=== PATIENT | male | born 1945 | race Caucasian/White ===

== ENCOUNTER 2023-02-13 02:40 | Outpatient (CLI) | payer OTHER, SELFPAY ==
--- NOTE | 2023-02-13 | DI.CT_ITS ---
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 FINDINGS: CHEST: Tracheobronchial tree: Patent where visualized. Pulmonary parenchyma: There are multiple pleural based and masses in the lungs. The largest is in th e left upper lobe posteriorly and measures 2.8 x 2.2 cm. There are bilateral pleural effusions left greater than right. There is a 1 cm left upper lobe there is a 9 mm nodule in the left upper lobe. There are subjacent infiltrate seen in the lower lobes bilaterally which may represent atelectasis or pneumonia. Pulmonary nodule. Visualized thyroid gland: Unremarkable. Mediastinum and Zulema: No dominant adenopathy or fluid collection. There are postsurgical changes of a gastric pull-up. Pleura: No pneumothorax. Heart: The heart is not dilated. No coronary artery calcifications are seen. No pericardial effusion. There are few nodules adjacent to the heart. The largest measures 2.1 x 1.4 cm. Pulmonary arteries: No pulmonary emboli are identified. Aorta: Thoracic aorta non-dilated. No evidence of dissection. Atherosclerosis is present. Lymph nodes: Within normal limits. Soft tissues: Mild gynecomastia. Bones:Within normal limits for the patient's age. Old healed left rib fracture. ABDOMEN: Liver: Normal density. There is a hypodensity in the right lobe of the liver consistent with a cyst. Portal, Superior Mesenteric, and Splenic Veins: Unremarkable. Gallbladder and Biliary Tract: No radiodense calculus or dilation. Pancreas: Normal density, no abnormal calcifications or inflammatory process. Spleen: Normal. Adrenals: No masses seen. Kidneys: The patient has a horseshoe kidney. Left renal calculi are identified. No evidence of obst ructive uropathy. No masses seen. Abdominal Aorta: Abdominal portion non-dilated. Atherosclerosis. Bowel: There is diverticulosis of the colon but no evidence of acute diverticulitis. No evidence of bowel obstruction or bowel wall thickening. No evidence of appendicitis. Peritoneal Cavity: No ascites, collection or mesenteric inflammatory response. No free air. Lymph Nodes: Within normal limits. Bones: Within normal limits for the patient's age. There is a 2.5 cm well-circumscribed lytic lesion in the right femoral neck with sclerotic borders. No bony destruction or associated soft tissue mas s is present. No aggressive osseous lesions are identified. Soft Tissues: There is a small fat containing umbilical hernia. PELVIS: Bladder: There is diffuse thickening of the wall of the urinary bladder. Reproductive Organs: Unremarkable as visualized. Lymph Nodes: Within normal limits. Bones: No aggressive osseous lesions are present. IMPRESSION: 1. Findings of thoracic metastatic disease with multiple on pleural based an intraparenchymal masses present. 2. Status post esophagectomy and gastric pull-up. 3. Bilateral pleural effusions, left greater than right. Subjacent infiltrates are seen, left greate r than right which may represent atelectasis or pneumonia. 4. No evidence of abdominal or pelvic metastatic disease. 5. Well-circumscribed 2.5 cm lytic lesion in the right femoral neck without evidence of bony destruct ion or soft tissue mass. Comparison should be made with prior examinations to assess stability of th is lesion. Follow-up as clinically appropriate. RADIATION DOSE DELIVERED: Total DLP DATA REPOSITORY: All CT scans at this facility are submitted to the National Radiology Data Registry (NRDR) Dose Index Registry (DIR) with the [employer] (ACR). RADIATION OPTIMIZATION: All CT scans at this facility use at least one of these dose optimization te chniques: automated exposure control; mA and/or kV adjustment per patient size (includes targeted exa ms where dose is matched to clinical indication); or iterative reconstruction.
[2023-02-13] MEDS: Barium Sulfate 2% W/V-Berry Smoothie 450 ML BTL PO (13:10)
[2023-02-13 13:37] LABS: Abs Immature Grans 0.01 10^3/uL (0.0-0.06); Absolute Basophil Count 0.04 10^3/uL (0.0-0.2); Absolute Eosinophil Count 0.16 10^3/uL (0.0-0.7); Absolute Lymphocyte Count 1.95 10^3/uL (1.2-3.4); Absolute Monocyte Count 0.66 10^3/uL (0.1-0.8); Absolute Neutrophil Count 3.04 10^3/uL (1.2-6.7); Basophils % 0.7; Eosinophils % 2.7; HCT 47.8 % (40.0-50.0); HGB 15.6 g/dL (13.5-17.5); Immature Grans % 0.2; Lymphocytes % 33.3; MCH 29.3 pg (27.0-33.0); MCHC 32.6 % (32.0-36.0); MCV 90 fL (80-95); Monocytes % 11.3; Neutrophils % 51.8; Platelet Count 330 10^3/uL (130-400); RBC 5.32 10^6/uL (4.36-5.78); RDW 14.1 % (11.8-14.1); RDW-SD 46.7 fL; WBC 5.86 10^3/uL (4.4-10.8)
[2023-02-13 14:05] LABS: ALT 15 U/L (16-63); AST 14 U/L (15-37); Albumin 3.3 g/dL (3.4-5.0); Alkaline Phosphatase 97 U/L (46-116); Anion Gap 4.6 mmol/L (3-11); BUN 11 mg/dL (7-18); Bilirubin, Total 0.6 mg/dL (0.2-1.0); CO2 30.4 mmol/L (21.0-32.0); Calcium 9.5 mg/dL (8.5-10.1); Chloride 105 mmol/L (98-107); Estimated GFR 77.04 (mL/min/1.73m2); Glucose 114 mg/dL (74-106); Potassium 4.4 mmol/L (3.5-5.1); Sodium 140 mmol/L (136-145); Total Protein 7.6 g/dL (6.4-8.2)
[2023-02-13] MEDS: Omnipaque 350 MG/ML 100 ML BTL IJ (15:01)
[2023-02-13] MEDS: Normal Saline - Diluent 50 ML VIAL IJ (15:02)
== END 2023-02-13 03:00 ==
PROVIDERS: PCP Internal Medicine; Visit Provider Internal Medicine Hematology & Oncology
DX: C15.9 Malignant neoplasm of esophagus, unspecified (principal)
CPT/HCPCS: 74177; 80053; 71260; 82378; 85025; J3490

== ENCOUNTER 2023-03-05 01:43 | Outpatient (CLI) | payer OTHER, SELFPAY ==
[2023-03-05 08:36] LABS: Abs Immature Grans 0.02 10^3/uL (0.0-0.06); Absolute Basophil Count 0.04 10^3/uL (0.0-0.2); Absolute Eosinophil Count 0.19 10^3/uL (0.0-0.7); Absolute Monocyte Count 0.68 10^3/uL (0.1-0.8); Absolute Neutrophil Count 3.13 10^3/uL (1.2-6.7); Basophils % 0.7; Eosinophils % 3.2; HCT 46.5 % (40.0-50.0); HGB 15.7 g/dL (13.5-17.5); Immature Grans % 0.3; Lymphocytes % 30.7; MCH 30.5 pg (27.0-33.0); MCHC 33.8 % (32.0-36.0); MCV 90 fL (80-95); Monocytes % 11.6; Neutrophils % 53.5; Platelet Count 276 10^3/uL (130-400); RBC 5.15 10^6/uL (4.36-5.78); RDW 15.7 % (11.8-14.1); RDW-SD 46.3 fL; WBC 5.86 10^3/uL (4.4-10.8)
[2023-03-05 08:50] LABS: ALT 11 U/L (16-63); AST 12 U/L (15-37); Albumin 3.5 g/dL (3.4-5.0); Alkaline Phosphatase 104 U/L (46-116); Anion Gap 8.4 mmol/L (3-11); BUN 13 mg/dL (7-18); Bilirubin, Total 0.9 mg/dL (0.2-1.0); CO2 28.6 mmol/L (21.0-32.0); CREATININE 1.2 mg/dL (0.70-1.30); Calcium 9.7 mg/dL (8.5-10.1); Chloride 103 mmol/L (98-107); Glucose 82 mg/dL (74-106); Sodium 140 mmol/L (136-145); Total Protein 7.5 g/dL (6.4-8.2)
[2023-03-05 19:09] LABS: CEA 5.9 ng/mL (See Note)
== END 2023-03-05 01:44 | disposition home or self-care (01) ==
PROVIDERS: PCP Internal Medicine; Visit Provider Internal Medicine Hematology & Oncology
DX: C15.9 Malignant neoplasm of esophagus, unspecified (principal)
CPT/HCPCS: 36415; 80053; 82378; 85025

== ENCOUNTER 2023-03-26 03:07 | Outpatient (CLI) | payer OTHER, SELFPAY ==
[2023-03-26 09:02] LABS: Abs Immature Grans 0.04 10^3/uL (0.0-0.06); Absolute Basophil Count 0.03 10^3/uL (0.0-0.2); Absolute Eosinophil Count 0.16 10^3/uL (0.0-0.7); Absolute Lymphocyte Count 2.12 10^3/uL (1.2-3.4); Absolute Monocyte Count 0.85 10^3/uL (0.1-0.8); Absolute Neutrophil Count 3.19 10^3/uL (1.2-6.7); Basophils % 0.5; Eosinophils % 2.5; HCT 43.5 % (40.0-50.0); HGB 14.6 g/dL (13.5-17.5); Immature Grans % 0.6; Lymphocytes % 33.2; MCH 30.9 pg (27.0-33.0); MCHC 33.6 % (32.0-36.0); MCV 92 fL (80-95); MPV 8.7 fL (8.0-11.0); Monocytes % 13.3; Neutrophils % 49.9; Platelet Count 255 10^3/uL (130-400); RBC 4.72 10^6/uL (4.36-5.78); RDW 18.4 % (11.8-14.1); WBC 6.39 10^3/uL (4.4-10.8)
[2023-03-26 09:31] LABS: ALT 11 U/L (16-63); AST 13 U/L (15-37); Albumin 3.3 g/dL (3.4-5.0); Alkaline Phosphatase 116 U/L (46-116); Anion Gap 5.5 mmol/L (3-11); BUN 14 mg/dL (7-18); Bilirubin, Total 0.6 mg/dL (0.2-1.0); CO2 29.5 mmol/L (21.0-32.0); CREATININE 1.3 mg/dL (0.70-1.30); Calcium 9.1 mg/dL (8.5-10.1); Chloride 102 mmol/L (98-107); Estimated GFR 56.23 (mL/min/1.73m2); Glucose 90 mg/dL (74-106); Potassium 4.5 mmol/L (3.5-5.1); Sodium 137 mmol/L (136-145); Total Protein 7.1 g/dL (6.4-8.2)
[2023-03-26 21:42] LABS: CEA 4.3 ng/mL (See Note)
== END 2023-03-26 03:08 | disposition home or self-care (01) ==
LOC: LBO 03:07
PROVIDERS: PCP Internal Medicine; Visit Provider Internal Medicine Hematology & Oncology
DX: C15.9 Malignant neoplasm of esophagus, unspecified (principal)
CPT/HCPCS: 36415; 80053; 82378; 85025

== ENCOUNTER 2023-04-15 02:41 | Outpatient (CLI) | payer OTHER, SELFPAY ==
[2023-04-15 08:11] LABS: Abs Immature Grans 0.03 10^3/uL (0.0-0.06); Absolute Basophil Count 0.05 10^3/uL (0.0-0.2); Absolute Eosinophil Count 0.18 10^3/uL (0.0-0.7); Absolute Lymphocyte Count 2.24 10^3/uL (1.2-3.4); Absolute Monocyte Count 0.87 10^3/uL (0.1-0.8); Absolute Neutrophil Count 3.97 10^3/uL (1.2-6.7); Basophils % 0.7; Eosinophils % 2.5; HCT 45.1 % (40.0-50.0); Immature Grans % 0.4; Lymphocytes % 30.5; MCH 31.3 pg (27.0-33.0); MCHC 33.3 % (32.0-36.0); MCV 94 fL (80-95); MPV 8.4 fL (8.0-11.0); Monocytes % 11.9; Platelet Count 283 10^3/uL (130-400); RBC 4.79 10^6/uL (4.36-5.78); RDW 19.4 % (11.8-14.1); RDW-SD 66.5 fL; WBC 7.34 10^3/uL (4.4-10.8)
[2023-04-15 08:28] LABS: ALT 10 U/L (16-63); AST 13 U/L (15-37); Albumin 3.3 g/dL (3.4-5.0); Alkaline Phosphatase 122 U/L (46-116); Anion Gap 4.7 mmol/L (3-11); BUN 13 mg/dL (7-18); Bilirubin, Total 0.7 mg/dL (0.2-1.0); CO2 31.3 mmol/L (21.0-32.0); CREATININE 1.3 mg/dL (0.70-1.30); Calcium 9.1 mg/dL (8.5-10.1); Chloride 102 mmol/L (98-107); Estimated GFR 56.23 (mL/min/1.73m2); Glucose 73 mg/dL (74-106); Potassium 3.7 mmol/L (3.5-5.1); Sodium 138 mmol/L (136-145); Total Protein 7.3 g/dL (6.4-8.2)
[2023-04-15 18:22] LABS: CEA 3.8 ng/mL (See Note)
== END 2023-04-15 02:42 | disposition home or self-care (01) ==
LOC: LBO 02:42
PROVIDERS: PCP Internal Medicine; Visit Provider Internal Medicine Hematology & Oncology
DX: C15.9 Malignant neoplasm of esophagus, unspecified (principal)
CPT/HCPCS: 36415; 80053; 82378; 85025

== ENCOUNTER 2023-05-16 01:45 | Outpatient (CLI) | payer OTHER, SELFPAY ==
[2023-05-16 08:40] LABS: Abs Immature Grans 0.03 10^3/uL (0.0-0.06); Absolute Basophil Count 0.04 10^3/uL (0.0-0.2); Absolute Eosinophil Count 0.19 10^3/uL (0.0-0.7); Absolute Lymphocyte Count 1.66 10^3/uL (1.2-3.4); Absolute Monocyte Count 0.87 10^3/uL (0.1-0.8); Basophils % 0.6; Eosinophils % 3.1; HCT 42.4 % (40.0-50.0); HGB 14.3 g/dL (13.5-17.5); Immature Grans % 0.5; Lymphocytes % 26.8; MCH 32.9 pg (27.0-33.0); MCHC 33.7 % (32.0-36.0); MCV 98 fL (80-95); MPV 8.4 fL (8.0-11.0); Monocytes % 14.1; Neutrophils % 54.9; Platelet Count 258 10^3/uL (130-400); RBC 4.34 10^6/uL (4.36-5.78); RDW 20.6 % (11.8-14.1); RDW-SD 73.6 fL; WBC 6.19 10^3/uL (4.4-10.8)
[2023-05-16 08:56] LABS: ALT 11 U/L (16-63); AST 16 U/L (15-37); Albumin 3.2 g/dL (3.4-5.0); Alkaline Phosphatase 112 U/L (46-116); Anion Gap 4.9 mmol/L (3-11); BUN 13 mg/dL (7-18); Bilirubin, Total 0.8 mg/dL (0.2-1.0); CO2 30.1 mmol/L (21.0-32.0); CREATININE 1.3 mg/dL (0.70-1.30); Calcium 9.4 mg/dL (8.5-10.1); Chloride 104 mmol/L (98-107); Estimated GFR 56.23 (mL/min/1.73m2); Glucose 97 mg/dL (74-106); Potassium 4.6 mmol/L (3.5-5.1); Sodium 139 mmol/L (136-145); Total Protein 6.8 g/dL (6.4-8.2)
[2023-05-16 20:35] LABS: CEA 4.4 ng/mL (See Note)
== END 2023-05-16 01:46 | disposition home or self-care (01) ==
LOC: LBO 01:45
PROVIDERS: PCP Internal Medicine; Visit Provider Internal Medicine Hematology & Oncology
DX: C15.9 Malignant neoplasm of esophagus, unspecified (principal)
CPT/HCPCS: 36415; 80053; 82378; 85025

== ENCOUNTER 2023-05-30 12:15 | Outpatient (CLI) | payer OTHER, SELFPAY ==
[2023-05-30 08:42] LABS: Abs Immature Grans 0.02 10^3/uL (0.0-0.06); Absolute Basophil Count 0.04 10^3/uL (0.0-0.2); Absolute Eosinophil Count 0.12 10^3/uL (0.0-0.7); Absolute Lymphocyte Count 1.69 10^3/uL (1.2-3.4); Absolute Monocyte Count 0.85 10^3/uL (0.1-0.8); Absolute Neutrophil Count 3.37 10^3/uL (1.2-6.7); Basophils % 0.7; HGB 14.6 g/dL (13.5-17.5); Immature Grans % 0.3; Lymphocytes % 27.8; MCH 33.3 pg (27.0-33.0); MCV 98 fL (80-95); MPV 8.8 fL (8.0-11.0); Neutrophils % 55.2; Platelet Count 245 10^3/uL (130-400); RBC 4.39 10^6/uL (4.36-5.78); RDW 18.7 % (11.8-14.1); RDW-SD 67.6 fL; WBC 6.09 10^3/uL (4.4-10.8)
[2023-05-30 09:00] LABS: ALT 12 U/L (16-63); AST 15 U/L (15-37); Albumin 3.2 g/dL (3.4-5.0); Alkaline Phosphatase 120 U/L (46-116); Anion Gap 3.2 mmol/L (3-11); BUN 12 mg/dL (7-18); Bilirubin, Total 0.9 mg/dL (0.2-1.0); CO2 31.8 mmol/L (21.0-32.0); CREATININE 1.1 mg/dL (0.70-1.30); Calcium 9.1 mg/dL (8.5-10.1); Chloride 103 mmol/L (98-107); Estimated GFR 68.71 (mL/min/1.73m2); Glucose 101 mg/dL (74-106); Potassium 4.1 mmol/L (3.5-5.1); Sodium 138 mmol/L (136-145)
[2023-05-30 19:38] LABS: CEA 4.9 ng/mL (See Note)
== END 2023-05-30 12:16 | disposition home or self-care (01) ==
LOC: LBO 12:15
PROVIDERS: PCP Internal Medicine; Visit Provider Internal Medicine Hematology & Oncology
DX: C15.9 Malignant neoplasm of esophagus, unspecified (principal)
CPT/HCPCS: 36415; 80053; 82378; 85025

== ENCOUNTER 2023-06-27 16:37 | Outpatient (CLI) | payer OTHER, SELFPAY ==
[2023-06-27 13:34] LABS: Abs Immature Grans 0.02 10^3/uL (0.0-0.06); Absolute Basophil Count 0.04 10^3/uL (0.0-0.2); Absolute Eosinophil Count 0.28 10^3/uL (0.0-0.7); Absolute Lymphocyte Count 1.87 10^3/uL (1.2-3.4); Absolute Neutrophil Count 3.73 10^3/uL (1.2-6.7); Basophils % 0.6; Eosinophils % 4.1; HCT 42.7 % (40.0-50.0); HGB 14.4 g/dL (13.5-17.5); Immature Grans % 0.3; Lymphocytes % 27.3; MCHC 33.7 % (32.0-36.0); MCV 101 fL (80-95); MPV 8.5 fL (8.0-11.0); Monocytes % 13.2; Neutrophils % 54.5; Platelet Count 334 10^3/uL (130-400); RBC 4.23 10^6/uL (4.36-5.78); RDW 17.2 % (11.8-14.1); RDW-SD 65.1 fL; WBC 6.84 10^3/uL (4.4-10.8)
[2023-06-27 13:51] LABS: ALT 10 U/L (16-63); AST 16 U/L (15-37); Albumin 3.1 g/dL (3.4-5.0); Alkaline Phosphatase 124 U/L (46-116); Anion Gap 6.7 mmol/L (3-11); BUN 17 mg/dL (7-18); Bilirubin, Total 0.7 mg/dL (0.2-1.0); CO2 28.3 mmol/L (21.0-32.0); CREATININE 1.2 mg/dL (0.70-1.30); Calcium 9.2 mg/dL (8.5-10.1); Chloride 106 mmol/L (98-107); Glucose 118 mg/dL (74-106); Potassium 4.1 mmol/L (3.5-5.1); Sodium 141 mmol/L (136-145); Total Protein 7.2 g/dL (6.4-8.2)
== END 2023-06-27 16:38 | disposition home or self-care (01) ==
LOC: LBO 16:40
PROVIDERS: PCP Internal Medicine; Visit Provider Internal Medicine Hematology & Oncology
DX: C15.9 Malignant neoplasm of esophagus, unspecified (principal)
CPT/HCPCS: 36415; 80053; 85025

== ENCOUNTER 2023-07-25 02:05 | Outpatient (CLI) | payer OTHER, SELFPAY ==
[2023-07-25 12:42] LABS: Abs Immature Grans 0.02 10^3/uL (0.0-0.06); Absolute Basophil Count 0.04 10^3/uL (0.0-0.2); Absolute Eosinophil Count 0.22 10^3/uL (0.0-0.7); Absolute Lymphocyte Count 1.66 10^3/uL (1.2-3.4); Absolute Monocyte Count 0.64 10^3/uL (0.1-0.8); Absolute Neutrophil Count 3.09 10^3/uL (1.2-6.7); Basophils % 0.7; Eosinophils % 3.9; HCT 42.2 % (40.0-50.0); Immature Grans % 0.4; Lymphocytes % 29.3; MCH 35.1 pg (27.0-33.0); MCHC 33.2 % (32.0-36.0); MCV 106 fL (80-95); MPV 8.6 fL (8.0-11.0); Monocytes % 11.3; Neutrophils % 54.4; Platelet Count 247 10^3/uL (130-400); RBC 3.99 10^6/uL (4.36-5.78); RDW 16.9 % (11.8-14.1); RDW-SD 66.5 fL; WBC 5.67 10^3/uL (4.4-10.8)
[2023-07-25 12:58] LABS: ALT 14 U/L (16-63); AST 19 U/L (15-37); Albumin 3.1 g/dL (3.4-5.0); Alkaline Phosphatase 128 U/L (46-116); Anion Gap 7.9 mmol/L (3-11); BUN 13 mg/dL (7-18); Bilirubin, Total 0.7 mg/dL (0.2-1.0); CO2 28.1 mmol/L (21.0-32.0); CREATININE 1.1 mg/dL (0.70-1.30); Calcium 9.1 mg/dL (8.5-10.1); Chloride 108 mmol/L (98-107); Estimated GFR 68.71 (mL/min/1.73m2); Glucose 66 mg/dL (74-106); Potassium 4.1 mmol/L (3.5-5.1); Sodium 144 mmol/L (136-145); Total Protein 6.7 g/dL (6.4-8.2)
[2023-07-25 21:49] LABS: CEA 6.3 ng/mL (See Note)
== END 2023-07-25 02:06 | disposition home or self-care (01) ==
LOC: LBO 02:05
PROVIDERS: PCP Internal Medicine; Visit Provider Internal Medicine Hematology & Oncology
DX: C15.9 Malignant neoplasm of esophagus, unspecified (principal)
CPT/HCPCS: 36415; 80053; 82378; 85025

== ENCOUNTER 2023-08-14 08:46 | Outpatient (CLI) | payer OTHER, SELFPAY ==
[2023-08-14 08:24] LABS: Abs Immature Grans 0.02 10^3/uL (0.0-0.06); Absolute Basophil Count 0.02 10^3/uL (0.0-0.2); Absolute Eosinophil Count 0.13 10^3/uL (0.0-0.7); Absolute Lymphocyte Count 1.56 10^3/uL (1.2-3.4); Absolute Monocyte Count 0.64 10^3/uL (0.1-0.8); Absolute Neutrophil Count 3.43 10^3/uL (1.2-6.7); Basophils % 0.3; Eosinophils % 2.2; HCT 44.8 % (40.0-50.0); HGB 14.8 g/dL (13.5-17.5); Immature Grans % 0.3; Lymphocytes % 26.9; MCH 34.6 pg (27.0-33.0); MCV 105 fL (80-95); MPV 8.7 fL (8.0-11.0); Neutrophils % 59.3; Platelet Count 294 10^3/uL (130-400); RBC 4.28 10^6/uL (4.36-5.78); RDW 16.1 % (11.8-14.1); RDW-SD 63.3 fL
[2023-08-14 08:38] LABS: ALT 12 U/L (16-63); AST 17 U/L (15-37); Albumin 3.4 g/dL (3.4-5.0); Alkaline Phosphatase 139 U/L (46-116); BUN 17 mg/dL (7-18); Bilirubin, Total 1.1 mg/dL (0.2-1.0); CREATININE 1.1 mg/dL (0.70-1.30); Calcium 9.6 mg/dL (8.5-10.1); Chloride 105 mmol/L (98-107); Estimated GFR 68.71 (mL/min/1.73m2); Glucose 89 mg/dL (74-106); Potassium 3.9 mmol/L (3.5-5.1); Sodium 143 mmol/L (136-145); Total Protein 7.2 g/dL (6.4-8.2)
[2023-08-14 19:12] LABS: CEA 6.7 ng/mL (See Note)
== END 2023-08-14 08:47 | disposition home or self-care (01) ==
LOC: LBO 08:49
PROVIDERS: PCP Internal Medicine; Visit Provider Internal Medicine Hematology & Oncology
DX: C15.9 Malignant neoplasm of esophagus, unspecified (principal)
CPT/HCPCS: 36415; 80053; 82378; 85025

== ENCOUNTER → 2023-09-02 05:19 | Outpatient (CLI) | payer OTHER, SELFPAY ==
--- NOTE | 2023-09-02 | DI.CT_ITS ---
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 ESOPHAGEAL CA C15.9 ASSESS TREATMENT TECHNIQUE: Imaging Protocol: Axial computed tomography images with coronal and sagittal reformatted images were created and reviewed CONTRAST MATERIAL: Intravenous: Omnipaque 350 contrast volume:100 mL Oral: Yes COMPARISON: CT CT ABD PELVIS WITH CONTRAST from 10/31/[address] THORAX W/CONT from 10/31/2022 CT,PT PET CT STANDARD SCAN SKULL BASE DEVIKA THIGH from 11/05/[address] THORAX W/O CONT from 12/10/[address] CHEST/ABD/PEL W from 02/13/[address] CHEST/ABD/PEL W from 04/08/[address] CHEST/ABD/PEL W from 06/20/2023 FINDINGS: CHEST: Tracheobronchial tree: Patent where visualized. Pulmonary parenchyma: There has been interval increase in size of the pulmonary metastases since 06/20. For example, the nodule seen in the posterior aspect of the right lower lobe now measures 1.2 x 1.7 cm (series 5, image 322, compared to 1.0 x 1.3 cm on the prior examination. The nodule seen m ore inferiorly and posteriorly now measures 1.1 x 0.8 cm (series 5, image 416) compared to 0.5 x 0.3 cm. The metastasis in the medial right lung base measures 1.5 x 2.7 cm (series 5, image 480 compared to 1.0 x 1.8 cm. There are persistent bilateral pleural effusions which each have grown slightly la rger compared to the prior examination. Visualized thyroid gland: Unremarkable. Mediastinum and Zulema: Mediastinal and hilar adenopathy is present. They have increased in size. Mos t notably there is a 1.5 cm lymph node in the mediastinum (series 5, image 216). Previously this mirtha sured 7 mm. Status post esophagectomy with a gastric pull-up. There has been interval increase in s ize of the metastasis adjacent to the left heart which now measures 2.7 x 2.7 cm (series 5, image 550 ) compared to 1.8 x 2 cm. Pleura: Pleural based metastases have also increased in size compared to the prior examinations. Heart: The heart is not dilated. Mild coronary artery calcification. No pericardial effusion. Pulmonary arteries: No pulmonary emboli are identified. Aorta: Thoracic aorta non-dilated. No evidence of dissection. Atherosclerotic calcification is prese nt. Lymph nodes: Please see the above discussion under mediastinum and zulema. Soft tissues: Unremarkable. Bones:Age-appropriate degenerative changes are seen in the spine. ABDOMEN: Liver: Normal density. Stable hepatic cyst. No suspicious hepatic masses are present. Portal, Superior Mesenteric, and Splenic Veins: Unremarkable. Gallbladder and Biliary Tract: Cholelithiasis. No biliary ductal dilatation. Pancreas: Pancreatic atrophy. No evidence of a pancreatic mass or peripancreatic fluid collection. Spleen: Normal. Adrenals: No masses seen. Kidneys: There is a horseshoe kidney. Nonobstructive left nephrolithiasis. No masses seen. Abdominal Aorta: Abdominal portion non-dilated. Atherosclerotic calcification is present. Bowel: Colonic diverticulosis without evidence of diverticulitis. The patient has had a prior esopha gectomy and gastric pull-up. There is no evidence of bowel wall thickening or obstruction. No evide nce of appendicitis. Peritoneal Cavity: No ascites, collection or mesenteric inflammatory response. No free air. Lymph Nodes: Within normal limits. Bones: Within normal limits for the patient's age. There is now fracture involving the posterior lef t aspect of the T12 vertebral body and the left pedicle. There is soft tissue associated with this s uggesting a pathologic fracture. There is resultant spinal canal narrowing down to the 8 mm. There is left neural foraminal stenosis also present. Soft Tissues: Unremarkable. PELVIS: Bladder: There is diffuse mild thickening of the wall of the urinary bladder. Reproductive Organs: Unremarkable as visualized. Lymph Nodes: Within normal limits. Bones: Within normal limits. IMPRESSION: 1. Findings most suggestive of pathologic fracture involving the T12 vertebral body and left pedicle resulting in central spinal canal and left neural foraminal stenosis. This is new compared to the pr ior examination. 2. Persistent mild thickening of the wall of the urinary bladder. Differential considerations includ e underdistention, cystitis or chronic bladder outlet obstruction. 3. Interval progression of metastatic disease in the chest with increase in size of the pulmonary met astases, thoracic adenopathy and pleural effusions. RADIATION DOSE DELIVERED: 1,654.17mGy.cm Total DLP DATA REPOSITORY: All CT scans at this facility are submitted to the National Radiology Data Registry (NRDR) Dose Index Registry (DIR) with the [employer] (ACR). RADIATION OPTIMIZATION: All CT scans at this facility use at least one of these dose optimization te chniques: automated exposure control; mA and/or kV adjustment per patient size (includes targeted exa ms where dose is matched to clinical indication); or iterative reconstruction.
[2023-09-02] MEDS: Barium Sulfate 2% W/V-Berry Smoothie 450 ML BTL PO (09:02)
[2023-09-02] MEDS: Barium Sulfate 2% W/V-Creamy Vanilla Smoothie 450 ML BTL PO (09:02)
[2023-09-02] MEDS: Normal Saline - Diluent 50 ML VIAL IJ (10:55)
[2023-09-02] MEDS: Normal Saline Flush 10 ML SYR IVP (10:56)
[2023-09-02] MEDS: Omnipaque 350 MG/ML 500 ML BTL-Imaging package 100 ML IJ (10:57)
== END ==
PROVIDERS: PCP Internal Medicine; Visit Provider Internal Medicine Hematology & Oncology
DX: C78.2 Secondary malignant neoplasm of pleura (principal); C15.9 Malignant neoplasm of esophagus, unspecified; M51.34 Other intervertebral disc degeneration, thoracic region
CPT/HCPCS: 74177; 71260

== ENCOUNTER 2023-09-05 13:31 | Outpatient (CLI) | payer OTHER, SELFPAY ==
[2023-09-05 13:41] LABS: Abs Immature Grans 0.02 10^3/uL (0.0-0.06); Absolute Basophil Count 0.03 10^3/uL (0.0-0.2); Absolute Eosinophil Count 0.11 10^3/uL (0.0-0.7); Absolute Lymphocyte Count 1.61 10^3/uL (1.2-3.4); Absolute Monocyte Count 0.77 10^3/uL (0.1-0.8); Absolute Neutrophil Count 5.24 10^3/uL (1.2-6.7); Basophils % 0.4 %; Eosinophils % 1.4 %; HCT 42.8 % (40.0-50.0); HGB 14.2 g/dL (13.5-17.5); Immature Grans % 0.3 %; Lymphocytes % 20.7 %; MCH 34.9 pg (27.0-33.0); MCHC 33.2 % (32.0-36.0); MCV 105 fL (80-95); MPV 8.8 fL (8.0-11.0); Monocytes % 9.9 %; Neutrophils % 67.3 %; Platelet Count 303 10^3/uL (130-400); RBC 4.07 10^6/uL (4.36-5.78); RDW 15.5 % (11.8-14.1); RDW-SD 60.9 fL; WBC 7.78 10^3/uL (4.4-10.8)
[2023-09-05 14:07] LABS: ALT 11 U/L (16-63); AST 23 U/L (15-37); Albumin 3.2 g/dL (3.4-5.0); Alkaline Phosphatase 143 U/L (46-116); Anion Gap 4.4 mmol/L (3-11); BUN 14 mg/dL (7-18); Bilirubin, Total 0.6 mg/dL (0.2-1.0); CO2 30.6 mmol/L (21.0-32.0); CREATININE 1.1 mg/dL (0.70-1.30); Calcium 9.2 mg/dL (8.5-10.1); Chloride 105 mmol/L (98-107); Estimated GFR 68.71 (mL/min/1.73m2); Glucose 124 mg/dL (74-106); Potassium 4.8 mmol/L (3.5-5.1); Sodium 140 mmol/L (136-145); Total Protein 7.1 g/dL (6.4-8.2)
[2023-09-05 22:55] LABS: CEA 6.7 ng/mL (See Note)
== END 2023-09-05 13:32 | disposition home or self-care (01) ==
LOC: LBO 13:31
PROVIDERS: PCP Internal Medicine; Visit Provider Internal Medicine Hematology & Oncology
DX: C15.9 Malignant neoplasm of esophagus, unspecified (principal)
CPT/HCPCS: 36415; 80053; 82378; 85025

== ENCOUNTER → 2023-09-24 04:16 | Outpatient (CLI) | payer OTHER, SELFPAY ==
[2023-09-24] MEDS: Gadoterate meglumine 20 ML SYRINGE 18 ML IVP (09:47)
[2023-09-24] MEDS: Normal Saline Flush 10 ML SYR IVP (09:48)
--- NOTE | 2023-09-24 10:20 | DI.MRI_ITS ---
Exam(s) MR THORACIC SPINE WO/W EXAM: MR THORACIC SPINE WO/W CLINICAL HISTORY: ESOPH/PLEURA CA,C15.9,C78.2 METS BONE [id number]. TECHNIQUE: Multiplanar multisequence MRI of the Thoracic spine was performed. CONTRAST MATERIAL: IV Contrast: 18 mL of Dotarem contrast administered. COMPARISON: CT CT CHEST/ABD/PEL W from 09/02/2023 FINDINGS: Bones: There is increased fat within the marrow of the T7 through L1 vertebral bodies which could be secondary to radiation therapy. There is slight loss of vertebral height of T6. No associated mass. There is again noted to be expansile mass involving the T12 vertebral body. It is eccentric toward t he left with destruction of the lamina, pedicle and transverse process and extension into the surroun ding soft tissues as well as left side of central canal. There is involvement of the left neural for amen at T11-12 is well as at T12-L1. There is mass effect on the thecal sac causing mild central can al stenosis a and rightward deviation of the thecal sac. There is enhancement surrounding the thecal sac at this level.. The lesion measures approximately 5.5 by 5 by 3.5 cm. There is There is a 1.7 centimeter lesion centrally and posteriorly in the T11 vertebral body. There is a mass at the posterior central canal at the L1 level measuring 1.8 x 1.4 x 1.5 cm. Cord: The thoracic cord is normal size and signal intensity. No intrinsic cord lesion is present. Discs: No disc herniation or bulge is present. Soft tissues: Small left pleural effusion. Trace right pleural effusion. Right posterior pleural ba sed masses. IMPRESSION: Large metastatic lesion to the T12 vertebral body with extension into the soft tissues, central canal and involvement of the left neural foramen as well as central canal stenosis. 1.7 centimeter lesion in the T11 vertebral body. Mass in the posterior central canal at the L1 level. DATA REPOSITORY:
== END ==
PROVIDERS: PCP Internal Medicine; Visit Provider Internal Medicine Hematology & Oncology
DX: C15.9 Malignant neoplasm of esophagus, unspecified (principal); C78.2 Secondary malignant neoplasm of pleura
CPT/HCPCS: 72157